=== PATIENT | female | born 1990 | race Two or more races ===

== ENCOUNTER 2017-06-25 14:58 | Emergency (ER) | payer BC ==
[~2017-06-25] VITALS: Ht 170.2 cm; Wt 75.7 kg
--- NOTE | 2017-06-25 15:30 | NUR ---
PT CAME IN WITH C/O MIGRAINE HEADACHE, FACE NUMBNESS, LEFT HAND NUMBNESS x 1 DAY. VSS. NAD NOTED. SEEN BY MD FOR EVAL. URINE SAMPPLE OBTAINED, SENT. SAFETY AND COMFORT MEASURES PROVIDED. WILL MONITOR.
[2017-06-25 15:34] LABS: APPEARANCE,URINE Clear (CLEAR); BILIRUBIN,URINE Negative (NEGATIVE); BLOOD, URINE Small Ery/uL (NEGATIVE); COLOR,URINE Yellow (YELLOW); KETONES,URINE Negative (NEGATIVE); LEUKOCYTE ESTERASE ,URINE Negative (NEGATIVE); NITRITE, URINE Negative (NEGATIVE); PROTEIN,URINE Negative (NEGATIVE); UGLUCOSE Negative (NEGATIVE); UROBILINOGEN,URINE 0.2 EU/dL (0.2)
--- NOTE | 2017-06-25 15:40 | NUR ---
IV ACCESS STARTED. MEDICATED ORDERED.
[2017-06-25 15:41] LABS: BACTERIA,URINE None seen /HPF (None Seen); MUCUS,URINE Few /LPF (None Seen); SQUAMOUS EPITHELIAL CELL,UR Few /HPF (None Seen); WBC,URINE 0-3 /HPF (0-3)
[2017-06-25] MEDS: IV NS 0.9% 1,000 ML BAG IV ONE (15:50)
[2017-06-25] MEDS ORDERED: METOCLOPRAMIDE HCL 10 MG/2 ML VIAL ONE (15:57)
[2017-06-25] MEDS ORDERED: KETOROLAC TROMETHAMINE INJ 30 MG/ML VIAL ONE (15:57)
[2017-06-25] MEDS: METOCLOPRAMIDE HCL 10 MG/2 ML VIAL IV ONE (16:00)
[2017-06-25] MEDS: KETOROLAC TROMETHAMINE INJ 30 MG/ML VIAL IV ONE (16:11)
[2017-06-25 16:51] VITALS: BP 138/79
--- NOTE | 2017-06-25 16:51 | NUR ---
Patient discharged to home in stable condition. Written and verbal after care instructions given. Patient verbalizes understanding of instruction.
--- NOTE | 2017-06-25 16:51 | NUR ---
IV removed. Catheter intact and site benign. Pressure and 4x4 applied to site. No bleeding noted.
== END 2017-06-25 16:52 | disposition home or self-care (01) ==
LOC: ER 15:01
DX: G43.909 Migraine, unspecified, not intractable, without status migrainosus (principal); Z90.49 Acquired absence of other specified parts of digestive tract
CPT/HCPCS: 81000-TC; 84703-TC; A4606; J1885; J2765; J7030; Z7610